=== PATIENT | female | born 1980 | race Hispanic/Latino ===

== ENCOUNTER 2021-04-15 20:40 | Emergency (ER) | payer OTHER ==
[~2021-04-15] VITALS: Ht 167.6 cm; Wt 86.2 kg
[2021-04-15 20:58] VITALS: BP 119/73
[2021-04-15 21:01] VITALS: BP 119/73
== END 2021-04-16 00:53 | disposition left against medical advice (07) ==
LOC: EDH 20:40
DX: R53.1 Weakness (principal); R53.83 Other fatigue; Z53.21 Procedure and treatment not carried out due to patient leaving prior to being seen by health care provider